=== PATIENT | female | born 1990 | race Caucasian/White ===

== ENCOUNTER 2020-12-31 04:05 | Emergency (ER) | payer MEDICAID ==
[~2020-12-31] VITALS: Ht 165.1 cm; Wt 88.5 kg
[2020-12-31 04:10] VITALS: BP 124/72
[2020-12-31] MEDS ORDERED: LORazepam 1 MG TAB PO ONE (04:25)
[2020-12-31 06:15] VITALS: BP 118/70
== END 2020-12-31 06:15 | disposition home or self-care (01) ==
LOC: MED 04:05
DX: F41.9 Anxiety disorder, unspecified (principal); F43.0 Acute stress reaction; Z98.890 Other specified postprocedural states
CPT/HCPCS: 99283